=== PATIENT | female | born 1990 | race Caucasian/White ===

== ENCOUNTER 2017-02-20 08:16 | Emergency (ER) | payer OTHER ==
[~2017-02-20] VITALS: Ht 162.6 cm; Wt 89.3 kg
[~2017-02-20 08:16] MED LIST: ACET-1145 PO; FAMO20TA18 PO; ONDA4TAB8 PO
[2017-02-20 08:19] VITALS: Ht 162.6 cm; Wt 89.3 kg
[2017-02-20] MEDS ORDERED: HYDROCODONE/APAP (5/325) TAB PO ONE (09:30)
[2017-02-20] MEDS ORDERED: DICLOFENAC SODIUM 37.5 MG/ML VIAL IV STA (10:18)
--- NOTE | 2017-02-20 11:53 | RADRPT ---
PROCEDURE: MR Cervical Spine. CLINICAL INDICATION: Neck pain. TECHNIQUE: Multiplanar multi echo imaging was performed on a high-resolution MRI scanner without c ontrast. COMPARISON: No. FINDINGS: The milka, fourth ventricle and cerebellum are normal. There is no evidence of tonsillar herniation. Spinal cord is normal in size with no intramedullary lesion is identified. There is no evidence o f vertebral body subluxation. The vertebra are normal in height and signal intensity. C2-3: The intervertebral disk space is unremarkable. No disk bulge or herniations identified. The neural canal and nerve root foramina are unremarkable. The articular facets are normal. The C3 vert ebra is normal. C3-4: The intervertebral disk space neural canal and nerve root foramina are normal. The articular facets are normal. No disk bulge or herniations identified. The C4 vertebra is normal. C4-5: The intervertebral disk space neural canal and nerve root foramina are unremarkable. No disk bulge or herniations identified. The articular facets are normal. The C5 vertebra is unremarkable. C5-6: The intervertebral disk space, neural canal and nerve root foramina are normal. No disk bulge or herniations identified. The articular facets are normal. There is a 1.7 mm AP dorsal disk oste ophyte complex. C6 is unremarkable. C6-7: The intervertebral disk space neural canal and nerve root foramina are unremarkable. There is no evidence of a disk bulge or herniation. C7 is normal. C7-T1: The intervertebral disk space neural canal and nerve root foramina are unremarkable. No disk bulge or herniations identified. T1 is normal. The visible portions of the parotid glands and intrinsic musculature of the tongue are normal. The submandibular glands and vocal cords are normal. The trachea is unremarkable. The thyroid gland is normal in size with no focal nodules identified. No enlarged supraclavicular lymph nodes are ident ified. No enlarged cervical lymph nodes are noted. IMPRESSION: 1. 1.7 mm AP dorsal central disk osteophyte complex at C5-6. 2. Otherwise, unremarkable MRI of the cervical spine. RPTAT:AAJJ Breezy Roger Physician Date Time Electronically viewed and signed by Breezy Kana, Physician on 02/20/2017 11:52 JM/
--- NOTE | 2017-02-20 11:59 | RADRPT ---
PROCEDURE: MR Thoracic Spine noncontrast. CLINICAL INDICATION: Back pain. TECHNIQUE: Multiplanar multisequence noncontrast MRI of the thoracic spine performed. COMPARISON: There are no similar studies submitted for comparison. FINDINGS: There is preservation of the normal thoracic kyphosis. The vertebral body heights are maintained. There is normal alignment. There is no destructive osseous lesion.There is no abnormal bone marrow edema. The discs are normal in height and signal. The spinal cord is normal is signal. There is no epidural fluid collection. There is no disk herniation, spinal canal, or bilateral foraminal stenosis. The paraspinal musculature are within normal limits. IMPRESSION: 1. No disk herniation, spinal canal, or bilateral foraminal stenosis. 2. No acute compression fracture or abnormal bone marrow edema. Further findings as detailed above. RPTAT: PP .Bandar Marino MD, Date Time Electronically viewed and signed by .Bandar Marino MD, on 02/20/2017 11:59 .F/
--- NOTE | 2017-02-20 12:37 | ERD ---
ER Documentation Chief Complaint Date/Time DATE: 02/20/17 Chief Complaint Neck pain HPI The patient is a 26-year-old female who presents to the Emergency Department with complaint of neck pain. The patient reports that she woke up at 1:30 am this morning secondary to severe posterior neck pain. The phone then began to ring, and the patient turned to answer it, at which time she heard a sudden pop to the posterior neck. Since, she has been experiencing 10/10 sharp pain to the posterior neck, which is worsened with any attempted movement or palpation. She also notes that the pain is worsened with movement of the upper extremities. The patient states that she feels some weakness upon leaning her neck forward. She denies any pain to the lateral aspects of the neck. She denies bowel or bladder disturbances, urinary retention, focal weakness or sensory loss. Denies restricted range of motion of the extremities. Denies headache. Denies recent falls or trauma to the neck. Denies recent motor vehicle collisions. The patient states that after onset of her symptoms, she took Tylenol and placed IcyHot onto her neck with no alleviation of symptoms. ROS All systems reviewed and are negative except as per history of present illness. Medications Home Meds Active Scripts Ibuprofen* (Motrin*) 600 Mg Tab, 600 MG PO Q6, #30 TAB Prov:KATELYN LUDWIG PA-C 02/20/17 Ondansetron Hcl* (Zofran*) 4 Mg Tablet, 4 MG PO Q6H Y for NAUSEA AND OR VOMITING for 10 Days, TAB Prov:PRESLEY CALIXTO NP 05/26/15 Famotidine* (Famotidine*) 20 Mg Tablet, 20 MG PO DAILY, #10 TAB Prov:PRESLEY CALIXTO NP 05/26/15 Acetaminophen-Codeine (Tylenol With Codeine #3 Tablet) 300-30 Mg Tablet, 1 TAB PO Q4H Y for PAIN, #10 TAB Prov:PRESLEY CALIXTO NP 05/26/15 Allergies Allergies: Coded Allergies: fish derived (Verified Allergy, Unknown, 02/20/17) PMhx/Soc Medical and Surgical Hx: pt denies Medical Hx History of Surgery: Yes ( X2, cholecystectomy) Anesthesia Reaction: No Hx Neurological Disorder: No Hx Respiratory Disorders: No Hx Cardiac Disorders: No Hx Psychiatric Problems: No Hx Miscellaneous Medical Probl: No Hx Alcohol Use: No Hx Substance Use: No Hx Tobacco Use: No Smoking Status: Never smoker Physical Exam Vitals Vital Signs Date Time Temp Pulse Resp B/P Pulse Ox O2 Delivery O2 Flow Rate FiO2 02/20/17 08:19 98.1 79 18 130/76 99 Physical Exam GENERAL: Well-developed, well-nourished, in no acute distress HEENT: Head is normocephalic, atraumatic. No scleral pallor or icterus. Pupils equal, round and reactive to light. Extraocular movements intact. Conjunctiva pink. Moist mucous membranes. NECK: Tenderness to palpation over the posterior neck. Pain noted by facial wincing and patient withdrawing with attempted movement of the patient's neck. No bruits. RESPIRATORY: Lungs are clear to auscultation bilaterally. Equal breath sounds. CARDIOVASCULAR: Regular rate and rhythm. S1 and S2 normal. BACK: No midline tenderness. No paraspinal tenderness. EXTREMITIES: No clubbing, cyanosis, or edema. Normal skin perfusion. Full range of motion of both the upper and lower extremities bilaterally. Muscle tone is normal. No focal swelling or erythema. Distal pulses are palpable, 2+ bilaterally. Capillary refill is less than 2 seconds. NEUROLOGIC: The patient is alert, awake, and oriented x 3. No focal neurologic deficits. Cranial nerves are grossly intact. Gait is observed and normal. There is no ataxia. Motor normal in all extremities. Sensation grossly intact.Speech is normal. Equal burglar alarm superintendent strength bilaterally. INTEGUMENT: Skin is clean, dry and intact. No rashes, lesions or petechiae present. PSYCHIATRIC: Appropriate; Cooperative. Results 24 hrs Current Medications Medications (Trade) Dose Ordered Sig/Park Route PRN Reason Start Time Stop Time Status Last Admin Dose Admin Acetaminophen/ Hydrocodone Bitart (Arvilla (5/325)) 1 tab ONCE ONCE PO 02/20/17 09:30 02/20/17 09:31 DC 02/20/17 09:19 Diclofenac Sodium (Dyloject) 37.5 mg ONCE STAT IV 02/20/17 10:18 02/20/17 10:19 DC 02/20/17 12:13 Procedures/MDM CONSULTATION: Dr. Polk, ED attending/supervising physician. Discussed patient case and presentation. Differential diagnoses discussed. Recommends MRI imaging. Recommends Dyloject for pain control. CONSULTATION: Dr. Patterson, Radiologist. Recommends MRI withOUT contrast unless looking for an abscess. DIAGNOSTIC TESTS AND INTERPRETATION: PROCEDURE: MR Cervical Spine. CLINICAL INDICATION: Neck pain. TECHNIQUE: Multiplanar multi echo imaging was performed on a high-resolution MRI scanner without contrast. COMPARISON: No. FINDINGS: The milka, fourth ventricle and cerebellum are normal. There is no evidence of tonsillar herniation. Spinal cord is normal in size with no intramedullary lesion is identified. There is no evidence of vertebral body subluxation. The vertebra are normal in height and signal intensity. C2-3: The intervertebral disk space is unremarkable. No disk bulge or herniations identified. The neural canal and nerve root foramina are unremarkable. The articular facets are normal. The C3 vertebra is normal. C3-4: The intervertebral disk space neural canal and nerve root foramina are normal. The articular facets are normal. No disk bulge or herniations identified. The C4 vertebra is normal. C4-5: The intervertebral disk space neural canal and nerve root foramina are unremarkable. No disk bulge or herniations identified. The articular facets are normal. The C5 vertebra is unremarkable. C5-6: The intervertebral disk space, neural canal and nerve root foramina are normal. No disk bulge or herniations identified. The articular facets are normal. There is a 1.7 mm AP dorsal disk osteophyte complex. C6 is unremarkable. C6-7: The intervertebral disk space neural canal and nerve root foramina are unremarkable. There is no evidence of a disk bulge or herniation. C7 is normal. C7-T1: The intervertebral disk space neural canal and nerve root foramina are unremarkable. No disk bulge or herniations identified. T1 is normal. The visible portions of the parotid glands and intrinsic musculature of the tongue are normal. The submandibular glands and vocal cords are normal. The trachea is unremarkable. The thyroid gland is normal in size with no focal nodules identified. No enlarged supraclavicular lymph nodes are identified. No enlarged cervical lymph nodes are noted. IMPRESSION: 1. 1.7 mm AP dorsal central disk osteophyte complex at C5-6. 2. Otherwise, unremarkable MRI of the cervical spine. Physician Bobbi Date Time Electronically viewed and signed by Breezy Roger, Physician on 02/20/2017 11:52 PROCEDURE: MR Thoracic Spine noncontrast. CLINICAL INDICATION: Back pain. TECHNIQUE: Multiplanar multisequence noncontrast MRI of the thoracic spine performed. COMPARISON: There are no similar studies submitted for comparison. FINDINGS: There is preservation of the normal thoracic kyphosis. The vertebral body heights are maintained. There is normal alignment. There is no destructive osseous lesion.There is no abnormal bone marrow edema. The discs are normal in height and signal. The spinal cord is normal is signal. There is no epidural fluid collection. There is no disk herniation, spinal canal, or bilateral foraminal stenosis. The paraspinal musculature are within normal limits. IMPRESSION: 1. No disk herniation, spinal canal, or bilateral foraminal stenosis. 2. No acute compression fracture or abnormal bone marrow edema. Further findings as detailed above. .Bandar Marino MD, MD Date Time Electronically viewed and signed by .Bandar Marino MD, MD on 02/20/2017 11:59 CONSULTATION: Dr. Breezy Roger, Radiologist: No evidence of transverse myelitis or any other acute process. EMERGENCY DEPARTMENT COURSE: The patient was stable throughout the ED course. Arvilla and Dyloject were administered for pain control. On reevaluation, the patient reports no new complaints and decreased pain. Additionally, reports that her "weakness" has resolved. MEDICAL DECISION MAKING: This is a 26-year-old female presenting to the Emergency Department with complaint of neck pain since this morning. Differentials considered include, but are not limited to, musculoskeletal etiology, blunt neck trauma, cervical disk herniation, epidural hematoma/abscess , temporal arteritis, transverse myelitis, vertebral osteomyelitis, cervical spine fracture/dislocation, cervical stenosis, cervical spondylosis, torticollis , neoplastic disease. MRI imaging performed, with no acute findings noted. After rest and administration of Arvilla and Dyloject, the patient reports no new complaints and decreased pain. Upon review and interpretation of the patient's presentation, I believe her symptoms are most consistent with acute neck pain, possibly secondary to musculoskeletal etiology. She has no focal neurologic deficits or findings on examination. No history of blunt neck trauma. No fevers, night sweats, systemic symptoms to suggest neoplastic etiology. No findings or herniation, spondylosis, stenosis on imaging. No fevers, no history of immunocompromised state or IV drug use, and therefore doubt epidural hematoma/abscess. No findings of osteomyelitis, transverse myelitis, fractures or dislocations. At this time, the patient is stable condition and therefore she can be discharged home with prescription for Ibuprofen and given strict return precautions for signs of deteriorating or worsening condition. She is advised to follow up with her primary medical provider in 1-2 days for reevaluation and further management , or return to the ED sooner for any new or worsening symptoms. I shared my medical decision making and plan with the patient and she verbally understands and agrees with the plan for further observation and care as an outpatient. At the time of discharge all questions were answered. Patient was given a copy of her results. Departure Diagnosis: Primary Impression: Neck pain Condition: Stable Patient Instructions: Neck Pain, No Trauma Additional Instructions: Call your primary care doctor TOMORROW for an appointment during the next 1-2 days.See the doctor sooner or return here if your condition worsens before your appointment time. KATELYN LUDWIG PA-C Feb 20, 2017 12:37
[2017-02-20] MEDS ORDERED: IBUP-1542 PO (12:38)
== END 2017-02-20 12:53 | disposition home or self-care (01) ==
LOC: FTE 08:16
DX: S19.9XXA Unspecified injury of neck, initial encounter (principal); X50.9XXA Other and unspecified overexertion or strenuous movements or postures, initial encounter; Y92.9 Unspecified place or not applicable
CPT/HCPCS: 72141; 72146; 96374; Z7502; Z7610